=== PATIENT | female | born 1995 | race African-American/Black ===

== ENCOUNTER 2017-05-16 14:46 | Emergency (ER) | payer SELFPAY ==
[~2017-05-16] VITALS: Ht 160 cm; Wt 61.0 kg
[2017-05-16 14:46] VITALS: BP 126/64; PULSE 116; RESP 12; TEMP 100.6; O2SAT 98
[~2017-05-16 14:46] MED LIST: DEPO400I IM
[2017-05-16] MEDS ORDERED: ACETAMINOPHEN 325 MG TAB PO ONE (15:00)
[2017-05-16] MEDS ORDERED: SODIUM CHLOR 0.9% 1000 ML INJ 1,000 ML IV ONE (15:00)
[2017-05-16 15:34] VITALS: BP 111/71; PULSE 103; RESP 19; TEMP 98.7; O2SAT 97
--- NOTE | 2017-05-16 15:52 | PD ---
HPI . Cough and congestion Chief Complaint: Cold / Flu Symptoms Time Seen by Provider: 15:00 Travel History International Travel<30 days: No Contact w/Intl Traveler<30days: No Traveled to known affect area: No History of Present Illness HPI Patient presents with a three-day history of cough and cold symptoms. She states that it started off as a runny nose and then progressed to an itchy sore throat. Last night, she had the onset of chills and myalgias. She states that her symptoms are getting progressively worse since last night. She rates the pain associated with her myalgias as 7/10. There are no modifying factors. No known sick contacts. 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 Past Surgical History Surgical History: No Previous Surgery Social History Alcohol Use: Yes (wine on occasion) Tobacco Use: Yes (05/27 ppd) Substance Use: No Allergies-Medications (Allergen,Severity, Reaction): Coded Allergies: No Known Allergies (Verified Adverse Reaction, Unknown, 05/16/17) Reported Meds & Prescriptions Reported Meds & Active Scripts Active Review of Systems Except as stated in HPI: all other systems reviewed are Neg General / Constitutional: Positive: Fever, Chills HENT: Positive: Rhinorrhea, Congestion Respiratory: Positive: Cough Gastrointestinal: Positive: Nausea, Vomiting Genitourinary: No: Urgency, Frequency, Dysuria Musculoskeletal: Positive: Myalgias Physical Exam Narrative Vital Signs Date Time Temp Pulse Resp B/P (MAP) Pulse Ox O2 Delivery O2 Flow Rate FiO2 05/16/17 15:34 98.7 103 19 111/71 (84) 97 Room Air 05/16/17 15:04 18 05/16/17 14:46 100.6 116 12 126/64 (84) 98 GENERAL: Awake and alert and in no acute distress. SKIN: warm/dry. Good turgor. HEAD: Normocephalic. Atraumatic. EYES: Pupils equal and round. No scleral icterus. No injection or drainage. ENT: Scant mucopurulent nasal drainage. Oropharynx pink and moist with no erythema. NECK: Trachea midline. Full range of motion without pain.. Supple. No cervical lymphadenopathy. CARDIOVASCULAR: Regular rate and rhythm. Heart sounds are normal. RESPIRATORY: No accessory muscle use. Clear to auscultation. Breath sounds equal bilaterally. GASTROINTESTINAL: Abdomen soft. Nontender. Bowel sounds present. Nondistended. MUSCULOSKELETAL: No obvious deformities. NEUROLOGICAL: Awake and alert. No obvious cranial nerve deficits. Motor grossly within normal limits. Normal speech. PSYCHIATRIC: Appropriate mood and affect; insight and judgment normal. Data Data Last Documented VS Vital Signs Date Time Temp Pulse Resp B/P (MAP) Pulse Ox O2 Delivery O2 Flow Rate FiO2 05/16/17 15:34 98.7 103 19 111/71 (84) 97 Room Air Orders Orders Sepsis Workup Initiated (05/16/17 ) Complete Blood Count With Diff (05/16/17 15:00) Comprehensive Metabolic Panel (05/16/17 15:00) Lactic Acid Sepsis Protocol (05/16/17 15:00) Influenzae A/B Antigen (05/16/17 15:00) Blood Culture (05/16/17 15:00) Chest, Single Ap (05/16/17 15:00) Iv Access Insert/Monitor (05/16/17 15:00) Acetaminophen (Tylenol) (05/16/17 15:00) Sodium Chlor 0.9% 1000 Ml Inj (Ns 1000 M (05/16/17 15:00) Labs Laboratory Tests Test 05/16/17 15:15 White Blood Count 21.6 TH/MM3 Red Blood Count 4.54 MIL/MM3 Hemoglobin 13.1 GM/DL Hematocrit 40.0 % Mean Corpuscular Volume 88.2 FL Mean Corpuscular Hemoglobin 28.8 PG Mean Corpuscular Hemoglobin Concent 32.6 % Red Cell Distribution Width 15.5 % Platelet Count 200 TH/MM3 Mean Platelet Volume 8.5 FL Neutrophils (%) (Auto) 89.6 % Lymphocytes (%) (Auto) 4.1 % Monocytes (%) (Auto) 6.2 % Eosinophils (%) (Auto) 0.0 % Basophils (%) (Auto) 0.1 % Neutrophils # (Auto) 19.4 TH/MM3 Lymphocytes # (Auto) 0.9 TH/MM3 Monocytes # (Auto) 1.3 TH/MM3 Eosinophils # (Auto) 0.0 TH/MM3 Basophils # (Auto) 0.0 TH/MM3 CBC Comment DIFF FINAL Differential Comment Blood Urea Nitrogen 14 MG/DL Creatinine 0.89 MG/DL Random Glucose 104 MG/DL Total Protein 8.7 GM/DL Albumin 3.9 GM/DL Calcium Level 9.5 MG/DL Alkaline Phosphatase 44 U/L Aspartate Amino Transf (AST/SGOT) 9 U/L Alanine Aminotransferase (ALT/SGPT) 10 U/L Total Bilirubin 1.1 MG/DL Sodium Level 135 MEQ/L Potassium Level 3.9 MEQ/L Chloride Level 101 MEQ/L Carbon Dioxide Level 26.7 MEQ/L Anion Gap 7 MEQ/L Estimat Glomerular Filtration Rate 95 ML/MIN Lactic Acid Level 1.6 mmol/L [facility] Medical Decision Making Medical Screen Exam Complete: Yes Emergency Medical Condition: Yes Differential Diagnosis Differential diagnosis of fever includes but is not limited to viral illness, strep throat, otitis media, pneumonia, sepsis, UTI Narrative Course This patient presents with an acute febrile illness. Onset of symptoms was 3 days ago. Symptoms became acutely worse last night. Septic workup is in progress. In the meantime, she is being given Tylenol and IV fluids. Flu screen is negative. Last Impressions Chest X-Ray 05/16/17 1500 Signed Impressions: Service Date/Time: Tuesday, May 16, 2017 15:29 - CONCLUSION: No acute cardiopulmonary disease identified. Talon Morse MD Chest x-ray was independently viewed by me. CBC & BMP Diagram 05/16/17 15:15 Total Protein 8.7 H, Albumin 3.9, Calcium Level 9.5, Alkaline Phosphatase 44 L, Aspartate Amino Transf (AST/SGOT) 9 L, Alanine Aminotransferase (ALT/SGPT) 10, Total Bilirubin 1.1 H LA 1.6 Sepsis Criteria SIRS Criteria (2 or more): Heart rate over 90, WBC > 59741, < 4000 or > 10% bands Criteria Outcome: Meets SIRS criteria Diagnosis Primary Impression: SIRS (systemic inflammatory response syndrome) Additional Impression: Viral syndrome Patient Instructions: General Instructions, Viral Syndrome (DC) Med/Other Pt SpecificInfo: Prescription(s) given Scripts Hydrocodone-Chlorpheniramine 12 HR Liq (Tussionex Pennkinetic Ext 12 HR Liq) 10- 8 Mg/5 Ml Susp 5 ML PO Q12H Y for COUGH AND/OR COLD SYMPTOMS, #60 ML 0 Refills Prov: Lauren Murphy MD 05/16/17 Ibuprofen (Ibuprofen) 800 Mg Tab 800 MG PO Q8H Y for Pain/Inflammation, #60 TAB 0 Refills Prov: Lauren uMrphy MD 05/16/17 Disposition: 01 DISCHARGE HOME Condition: Stable Lauren Murphy MD May 16, 2017 15:51
[2017-05-16 16:01] LABS: AUTOMATED NEUTROPHIL # 19.4 TH/MM3 (1.8-7.7); BASOPHIL % 0.1 % (0.0-2.0); HEMOGLOBIN 13.1 GM/DL (11.6-15.3); LYMPH % 4.1 % (9.0-44.0); LYMPHOCYTE # 0.9 TH/MM3 (1.0-4.8); MEAN CELL VOLUME 88.2 FL (80.0-100.0); MEAN CORPUSCULAR HEMOGLOBIN 28.8 PG (27.0-34.0); MEAN CORPUSCULAR HGB CONC 32.6 % (32.0-36.0); MEAN PLATELET VOLUME 8.5 FL (7.0-11.0); MONO % 6.2 % (0.0-8.0); MONOCYTE # 1.3 TH/MM3 (0-0.9); NEUT % 89.6 % (16.0-70.0); PLATELET COUNT 200 TH/MM3 (150-450); RED BLOOD COUNT 4.54 MIL/MM3 (4.00-5.30); RED CELL DISTRIBUTION WIDTH 15.5 % (11.6-17.2); WHITE BLOOD COUNT 21.6 TH/MM3 (4.0-11.0)
--- NOTE | 2017-05-16 16:14 | RADRPT ---
EXAM DATE/TIME: 05/16/2017 15:29 [facility] COMPARISON: No previous studies available for comparison. INDICATIONS : Coughing, vomitting, and fever symptoms. MEDICAL HISTORY : None. SURGICAL HISTORY : None. ENCOUNTER: Initial ACUITY: 2 days PAIN SCORE: 0/10 LOCATION: Bilateral chest FINDINGS: Single AP view of the chest. The lungs are clear. Cardiomediastinal silhouette within normal limits. No evidence of pleural effusion or pneumothorax. CONCLUSION: No acute cardiopulmonary disease identified. Talon Morse MD on May 16, 2017 at 16:12 Board Certified Radiologist. This report was verified electronically.
[2017-05-16 16:30] LABS: ALBUMIN 3.9 GM/DL (3.4-5.0); ALT (GPT) 10 U/L (10-53); AST (GOT) 9 U/L (15-37); BICARBONATE 26.7 MEQ/L (21.0-32.0); BLOOD UREA NITROGEN 14 MG/DL (7-18); CALCIUM 9.5 MG/DL (8.5-10.1); CHLORIDE 101 MEQ/L (98-107); CREATININE 0.89 MG/DL (0.50-1.00); GLOMERULAR FILTRATION RATE 95 ML/MIN (>89); GLUCOSE,RANDOM 104 MG/DL (74-106); SODIUM (NA) 135 MEQ/L (136-145)
[2017-05-16 16:32] LABS: ALKALINE PHOSPHATASE 44 U/L (45-117); TOTAL BILIRUBIN ADULT 1.1 MG/DL (0.2-1.0); TOTAL PROTEIN 8.7 GM/DL (6.4-8.2)
[2017-05-16] MEDS ORDERED: TUSSSUS2 PO (16:38)
[2017-05-16] MEDS ORDERED: IBUP1TAB7 PO (16:38)
== END 2017-05-16 17:07 | disposition home or self-care (01) ==
LOC: NEPD 14:46
DX: R65.10 Systemic inflammatory response syndrome (SIRS) of non-infectious origin without acute organ dysfunction (principal); B34.9 Viral infection, unspecified; F17.200 Nicotine dependence, unspecified, uncomplicated
CPT/HCPCS: 71010; 80053; 83605; 85025; 87040; 87804; 96360; 99284; J7030

== ENCOUNTER 2017-05-26 13:12 | Emergency (ER) | payer SELFPAY ==
[~2017-05-26] VITALS: Ht 160 cm; Wt 60.0 kg
[~2017-05-26 13:12] MED LIST changes: -DEPO400I IM; +IBUP1TAB7 PO; +TUSSSUS2 PO
[2017-05-26 13:13] VITALS: BP 111/65; PULSE 110; RESP 20; TEMP 102.6; O2SAT 96
--- NOTE | 2017-05-26 14:34 | PD ---
HPI . Flu symptoms Chief Complaint: Cold / Flu Symptoms Time Seen by Provider: 13:47 Travel History International Travel<30 days: No Contact w/Intl Traveler<30days: No Traveled to known affect area: No History of Present Illness HPI This patient presents with a 2 day history of flulike symptoms. She is complaining with cough, myalgias, postnasal drip, headache. She has tried Mucinex for her symptoms. She has not taken an antipyretic. There are no modifying factors. Symptoms are mild. PFSH Past Medical History Medical History: Denies Significant Hx Diminished Hearing: No Immunizations Current: Yes ?: Not LMP: 04/27/17 : 1 : 1 Past Surgical History Surgical History: No Previous Surgery Social History Alcohol Use: Yes (wine on occasion) Tobacco Use: No Substance Use: Yes (MARIJUANA) Allergies-Medications (Allergen,Severity, Reaction): Coded Allergies: No Known Allergies (Verified Adverse Reaction, Unknown, 05/26/17) Reported Meds & Prescriptions Reported Meds & Active Scripts Active Tussionex Pennkinetic Ext 12 HR Liq (Hydrocodone-Chlorpheniramine 12 HR Liq) 10- 8 Mg/5 Ml Susp 5 Ml PO Q12H PRN Ibuprofen 800 Mg Tab 800 Mg PO Q8H PRN Review of Systems Except as stated in HPI: all other systems reviewed are Neg General / Constitutional: Positive: Fever, Chills HENT: Positive: Headaches, Other (postnasal drip) Respiratory: Positive: Cough Musculoskeletal: Positive: Myalgias Physical Exam Narrative GENERAL: Awake and alert and in no acute distress. SKIN: Warm and dry. Good color and turgor. HEAD: Normocephalic/atraumatic. EYES: Pupils are equal. Extraocular movements are intact. ENT: Oropharynx is pink and moist without erythema. No tonsillar exudate or enlargement. NECK: Normal range of motion. Supple. No cervical lymphadenopathy. CARDIOVASCULAR: Sinus tachycardia. RESPIRATORY: Nonlabored respirations. Lungs are clear with good air movement throughout. ABDOMEN: Abdomen is soft and nontender. MUSCULOSKELETAL: Atraumatic. NEUROLOGICAL: Nonfocal. PSYCHIATRIC: Appropriate mood and affect. Data Data Last Documented VS Vital Signs Date Time Temp Pulse Resp B/P (MAP) Pulse Ox O2 Delivery O2 Flow Rate FiO2 05/26/17 13:13 102.6 110 20 111/65 (80) 96 Room Air Orders Orders Ibuprofen (Motrin) (05/26/17 14:45) Sodium Chlor 0.9% 1000 Ml Inj (Ns 1000 M (05/26/17 14:45) Influenzae A/B Antigen (05/26/17 14:31) MDM Medical Decision Making Medical Screen Exam Complete: Yes Emergency Medical Condition: Yes Differential Diagnosis Differential diagnosis of fever includes but is not limited to viral illness, strep throat, otitis media, pneumonia, sepsis, UTI Narrative Course This patient presents with an acute febrile illness. She is febrile at 102.6 and has a heart rate of 110. She will be treated here with ibuprofen and IV fluids. Flu screen is pending. Flu screen is negative. The patient reports that she is feeling a little bit better following fluids and ibuprofen. Diagnosis Primary Impression: Viral syndrome Patient Instructions: General Instructions, Viral Syndrome (DC) Disposition: 01 DISCHARGE HOME Condition: Stable Lauren Murphy MD May 26, 2017 14:34
[2017-05-26] MEDS ORDERED: IBUPROFEN 800 MG TAB PO ONE (14:45)
[2017-05-26] MEDS ORDERED: SODIUM CHLOR 0.9% 1000 ML INJ 1,000 ML IV ONE (14:45)
[2017-05-26 16:07] VITALS: TEMP 100.7
== END 2017-05-26 16:13 | disposition home or self-care (01) ==
LOC: NEPD 13:12
DX: B34.9 Viral infection, unspecified (principal); F12.90 Cannabis use, unspecified, uncomplicated
CPT/HCPCS: 87804; 96360; 99284; J7030